=== PATIENT | female | born 1990 | race Asian ===

== ENCOUNTER 2019-08-17 07:58 | Outpatient (CLI) | payer OTHER ==
[2019-08-18 12:18] LABS: SARS-CoV-2 MS2 Positive; SARS-CoV-2 N Gene Negative; SARS-CoV-2 S Gene Negative; SARS-CoV-2 orf1ab Negative
== END 2019-08-17 07:59 | disposition home or self-care (01) ==
LOC: LABBT 07:58
PROVIDERS: ATTEND Obstetrics & Gynecology
DX: Z01.812 Encounter for preprocedural laboratory examination (principal); Z11.59 Encounter for screening for other viral diseases
CPT/HCPCS: 87635; U0003

== ENCOUNTER 2019-08-21 19:30 | Inpatient (IN) | payer MEDICAID, OTHER, SELFPAY ==
--- NOTE | 2019-08-21 19:24 | PDOC.LDHP ---
Labor and Delivery H&P Chief complaint: scheduled induction HPI: 29 y/o at 39 and 0/7 weeks presents for term induction of labor. Current gestational age (weeks): 39 Due date: 08/28/19 Grav: 1 Para: 0 Current complications: none Abnormal US findings: No Current medications: pre- vitamins Previous surgical history: none Social history: none - Physical Exam Vital signs reviewed and normal: yes General: NAD, resting Heart: RRR Lungs: CTAB Abdomen: NTTP Extremeties: no edema FHT: category 1 - Assessment L&D Assessment: elective induction at term - Plan Plan: admit to L&D, cervical ripening
[~2019-08-21 19:30] MED LIST: Acetaminophen 500 MG TAB PO PRN; Butorphanol Tartrate 1 MG/ML VIAL SLOW IVP PRN; Carboprost 250 MCG/ML AMP IM PRN; Diphenoxylate HCl/Atropine Tablet PO PRN; Docusate 100 MG CAP PO PRN; HYDROcodone/Acetaminophen 5/325 mg Tablet PO PRN; Ibuprofen 800 MG TAB PO PRN; Lidocaine 1% (PF) 30 ML VIAL SC PRN; Methylergonovine 0.2 MG/ML VIAL IM PRN; Misoprostol 200 MCG TAB PR PRN; NS / Oxytocin 40 units/1000ml 1,000 ML IV PRN; Ondansetron PF 4 MG/2 ML Vial IVP PRN; Promethazine HCl 25 MG/ML VIAL IM PRN; Zolpidem Tartrate 5 MG TAB PO PRN
[2019-08-22 00:22] VITALS: BMI 28.5
[2019-08-22] MEDS: Lactated Ringer's 1,000 ML IV SCH (00:34)
[2019-08-22 01:06] LABS: Hemoglobin 14.5 g/dL (12.0-16.0); Mean Corpuscular HGB CONC 34.9 g/dL (32.0-36.0); Mean Corpuscular Hemoglobin 33.3 pg (27.0-31.0); Mean Corpuscular Volume 95.6 fL (78.0-98.0); Mean Platelet Volume 6.4 fL (7.4-10.4); Platelet Count 244 thou/uL (130-400); RBC Distribution Width 11.8 % (11.5-14.5); Red Blood Cell (RBC) Count 4.34 mill/uL (4.20-5.40); White Blood Cell (WBC) Count 7.7 thou/uL (4.8-10.8)
[2019-08-22] MEDS ORDERED: NS w/ Oxytocin 10 units 500 ML IV SCH (01:30)
[2019-08-22] MEDS ORDERED: hydrALAZINE 20 MG/ML VIAL SLOW IVP PRN (01:30)
[2019-08-22] MEDS: Misoprostol 100 MCG TAB VAG SCH ×2 (01:32→20:41)
[2019-08-22] MEDS: NS w/ Oxytocin 10 units 500 ML IV SCH (01:33)
[2019-08-22 01:43] LABS: HBSAg Index 0.16 S/CO (0-0.99); Hep B Surf Ag Non-Reactive S/CO (NonReactive)
[2019-08-22 04:47] LABS: Syphilis Antibody Nonreactive (Nonreactive); Syphilis Antibody Index 0.04 S/CO (<1.00 Non-Reactive)
[2019-08-22] MEDS ORDERED: Fentanyl 4 mcg/Bup 0.1% Cadd 100 ML ONE (21:47)
[2019-08-22] MEDS ORDERED: EPHEDRINE 25 MG/5 ML SYRINGE SLOW IVP PRN (22:37)
[2019-08-22] MEDS ORDERED: Lactated Ringer's 500 ML IV PRN (22:37)
[2019-08-22] MEDS ORDERED: diphenhydrAMINE 50 MG/ML VIAL IVP PRN (22:37)
[2019-08-22] MEDS ORDERED: Acetaminophen 325 MG TAB PO PRN (22:37)
[2019-08-22] MEDS ORDERED: Ondansetron PF 4 MG/2 ML Vial IVP PRN (22:37)
[2019-08-22] MEDS ORDERED: Promethazine HCl 25 MG/ML VIAL IM PRN (22:37)
[2019-08-22] MEDS ORDERED: Naloxone HCl 0.4 mg/ml Vial IVP PRN ×2 (22:37)
[2019-08-22] MEDS ORDERED: Fentanyl 4 mcg/Bupivacaine 0.1% Cassette 100 ML EPIDURAL SCH (22:45)
[2019-08-22] MEDS ORDERED: Communication Order-Pharmacy FS SCH (22:45)
[2019-08-22] MEDS ORDERED: NS / Oxytocin 40 units/1000ml 1,000 ML ONE (23:58)
[2019-08-22] MEDS ORDERED: Lidocaine 1% (PF) 30 ML VIAL ONE (23:58)
[2019-08-23] MEDS ORDERED: Methylergonovine 0.2 MG/ML VIAL IM PRN (04:05)
[2019-08-23] MEDS ORDERED: Misoprostol 200 MCG TAB VAG PRN (04:05)
[2019-08-23] MEDS ORDERED: Benzocaine-Menthol 82.5 ML CAN TOP PRN (04:05)
[2019-08-23] MEDS ORDERED: Lanolin Ointment 7 GM TUBE TOP PRN (04:05)
[2019-08-23] MEDS ORDERED: diphenhydrAMINE 25 MG CAP PO PRN (04:05)
[2019-08-23] MEDS ORDERED: Bisacodyl 10 MG SUPP PR PRN (04:05)
[2019-08-23] MEDS ORDERED: Ondansetron PF 4 MG/2 ML Vial IVP PRN (04:05)
[2019-08-23] MEDS ORDERED: Promethazine HCl 25 MG/ML VIAL IM PRN (04:05)
[2019-08-23] MEDS ORDERED: HYDROcodone/Acetaminophen 5/325 mg Tablet PO PRN ×2 (04:05)
[2019-08-23] MEDS ORDERED: Zolpidem Tartrate 5 MG TAB PO PRN (04:05)
[2019-08-23] MEDS ORDERED: NS / Oxytocin 40 units/1000ml 1,000 ML IV SCH (04:05)
[2019-08-23] MEDS ORDERED: Preparation H Ointment 28 GM TUBE PR PRN (04:05)
[2019-08-23] MEDS ORDERED: Milk Of Magnesia 30 ML UDCUP PO PRN (04:05)
[2019-08-23] MEDS ORDERED: hydrALAZINE 20 MG/ML VIAL SLOW IVP PRN (04:05)
[2019-08-23] MEDS: Misoprostol 100 MCG TAB VAG SCH ×2 (04:37→04:38)
[2019-08-23] MEDS: Lactated Ringer's 1,000 ML IV SCH (04:38)
[2019-08-23] MEDS: NS w/ Oxytocin 10 units 500 ML IV SCH (04:38)
[2019-08-23] MEDS: Ibuprofen 800 MG TAB PO SCH ×3 (05:21→21:33)
[2019-08-23] MEDS ORDERED: Measles/Mumps/Rubella 10 MCG/0.5 ML VIAL SC ONE (09:00)
[2019-08-23] MEDS ORDERED: Varicella virus, LIVE 0.5 ML VIAL SC ONE (09:00)
[2019-08-23] MEDS ORDERED: Adacel (T-DAP) 0.5 ML SYRINGE IM ONE (09:00)
[2019-08-23] MEDS: Prenatal Vitamin 1 TAB PO SCH (10:19)
[2019-08-23] MEDS: Ferrous Sulfate 325 MG TAB PO SCH ×2 (10:20→16:40)
[2019-08-23] MEDS: Docusate Calcium (SURFAK) 240 MG CAP PO SCH ×2 (10:20→21:33)
--- NOTE | 2019-08-23 18:29 | PDOC.PP ---
Post Progress Note Post Day #: 0 PO intake tolerated: yes Flatus: yes Ambulation: yes Vital Signs (12 hours) Temp Pulse Resp BP Pulse Ox 08/23/19 11:54 98.8 F 104 H 20 111/66 97 08/23/19 08:49 98.8 F 104 H 20 101/64 97 Weight Weight 156 lb - Physical Examination General: NAD Cardiovascular: no m/r/g, RRR Respiratory: clear to auscultation bilaterally, non-labored breathing Abdominal: + bowel sounds, lochia, no distention Extremities: negative homans (B) Neurological: no gross focal deficits Psychiatric: A&Ox3, normal affect Result Diagrams: 08/22/19 00:53 Additional Labs: Post Labs Blood Type AB POSITIVE 08/22/19 01:14 Hep Bs Antigen Non-Reactive S/CO (NonReactive) 08/22/19 00:53
--- NOTE | 2019-08-23 20:10 | DN ---
DATE OF PROCEDURE: 08/23/2019 TIME OF DELIVERY: At 0040 [place] [employer] [place] Time. PREOPERATIVE DIAGNOSIS: Intrauterine at 39 weeks and 2 days with a term induction of labor. POSTOPERATIVE DIAGNOSIS: Intrauterine at 39 weeks and 2 days with a term induction of labor. PROCEDURE: Spontaneous vaginal delivery over a second-degree laceration of the perineum. FINDINGS: Viable female infant weighing 3064 g or 6 pounds 12 ounces. Apgars of eight and nine. ESTIMATED BLOOD LOSS: 500 mL. COMPLICATIONS: None. PROCEDURE IN DETAIL: The patient presented to [facility] where she was admitted to the labor and delivery service. The patient underwent a normal and uneventful labor with normal cervical dilatation until she was found to be completely dilated. She was then allowed to push and was able to bring the baby down and delivered the baby in a vertex presentation without difficulties. Once the head delivered in occiput anterior position, the shoulders followed spontaneously along with the rest of the baby's body. Once out the baby's mouth and nose were bulb suctioned. The cord was clamped and cut and baby was handed to waiting attendants. Cord blood was collected. Gentle fundal massage was performed and the placenta delivered intact without problems. Hemostasis was assured. Quantitative blood loss was calculated. Inspection of the cervix, vaginal vault, and perineum did not reveal any lacerations needing suturing. Once again, hemostasis was within normal limits and the patient was allowed to recover in the labor and delivery room. Baby went to nursery. Job ID: [id number]
[2019-08-24] MEDS: Ibuprofen 800 MG TAB PO SCH ×2 (05:13→14:25)
[2019-08-24 06:00] LABS: Hemoglobin 12.2 g/dL (12.0-16.0); Mean Corpuscular HGB CONC 33.6 g/dL (32.0-36.0); Mean Corpuscular Hemoglobin 32.4 pg (27.0-31.0); Mean Corpuscular Volume 96.5 fL (78.0-98.0); Platelet Count 220 thou/uL (130-400); RBC Distribution Width 11.9 % (11.5-14.5); Red Blood Cell (RBC) Count 3.76 mill/uL (4.20-5.40)
[2019-08-24 07:46] VITALS: BP 114/69; TEMP 98.2
[2019-08-24] MEDS: Ferrous Sulfate 325 MG TAB PO SCH (09:01)
[2019-08-24] MEDS: Prenatal Vitamin 1 TAB PO SCH (09:18)
[2019-08-24] MEDS: Docusate Calcium (SURFAK) 240 MG CAP PO SCH (09:18)
== END 2019-08-24 15:22 | disposition home or self-care (01) | DRG 807 ==
LOC: L&D 08-22 00:05 → 3SW 08-23 04:47
PROVIDERS: ADMIT Obstetrics & Gynecology; ATTEND Obstetrics & Gynecology
PROC: 10E0XZZ Delivery of Products of Conception, External Approach (ICD-10-PCS; principal; 2019-08-23)
PROC: 0KQM0ZZ Repair Perineum Muscle, Open Approach (ICD-10-PCS; 2019-08-23)
PROC: 10907ZC Drainage of Amniotic Fluid, Therapeutic from Products of Conception, Via Natural or Artificial Opening (ICD-10-PCS; 2019-08-23)
PROC: 3E0P7VZ Introduction of Hormone into Female Reproductive, Via Natural or Artificial Opening (ICD-10-PCS; 2019-08-23)
PROC: 3E033VJ Introduction of Other Hormone into Peripheral Vein, Percutaneous Approach (ICD-10-PCS; 2019-08-23)
DX: O70.1 Second degree perineal laceration during delivery (principal); Z37.0 Single live birth; Z3A.39 39 weeks gestation of pregnancy
CPT/HCPCS: 36415; 51702; 85027; 86780; 86850; 86900; 86901; 87340; 90715; J0595; J0690; J2001; J2210